=== PATIENT | female | born 1970 | race Caucasian/White ===

== ENCOUNTER → 2017-01-01 | Outpatient (CLI) | payer OTHER ==
[~2017-01-01] MED LIST: BIMA0.01 OP; CYAN100T PO; DOCU-94 PO; FERR1TAB23; FERR28TA; MTR600X PO; MULT-506 PO; NAPR1TAB9 PO; OXYC-57 PO; SACC250C11
[2017-01-01 11:06] LABS: BLOOD UREA NITROGEN 20 mg/dl (7-18); BUN/CREATININE RATIO 29.4 (10-20); CARBON DIOXIDE 26 mmol/L (21-32); CHLORIDE 109 mmol/L (98-107); CHOLESTEROL 155 mg/dl (0-200); CREATININE 0.69 mg/dl (0.60-1.20); GLUCOSE 132 mg/dl (70-99); POTASSIUM 4.2 mmol/L (3.5-5.1); SODIUM 142 mmol/L (136-145); TRIGLYCERIDES 44 mg/dl (0-150); VERY LOW DENSITY LIPOPROT CALC 9 mg/dl
[2017-01-01 11:09] LABS: CALCIUM 8.3 mg/dl (8.5-10.1)
[2017-01-01 11:16] LABS: HDL CHOLESTEROL 77 mg/dl; LDL CHOLESTEROL CALCULATED 69 mg/dl
[2017-01-01 11:58] LABS: HEMATOCRIT 20.8 % (37-47); MEAN CELL VOLUME 68.9 fL (80-100); MEAN CORPUSCULAR HEMOGLOBIN 19.9 pg (25-34); MEAN CORPUSCULAR HGB CONC 28.8 g/dl (32-36); MEAN PLATELET VOLUME 10.9 fL (7.4-10.4); PLATELET COUNT 241 K/uL (130-400); RED BLOOD COUNT 3.02 M/uL (4.2-5.4); WHITE BLOOD COUNT 3.77 K/uL (4.8-10.8)
[2017-01-01 13:36] LABS: FERRITIN 1.8 ng/ml (8.0-388.0)
[2017-01-01 13:49] LABS: BASO % 1.7 %; BASO ABS # 0.07 K/uL (0-0.2); EOS % 4.7 %; IG% 0.2 %; LYMPH % 31.5 %; LYMPH ABS # 1.28 K/uL (1.2-3.4); MONO % 10.8 %; NEUT % 51.1 %
[2017-01-01 14:23] LABS: COMPLETE YES; MICROCYTOSIS PRESENT; OVALOCYTES 1+
== END | disposition home or self-care (01) ==
LOC: C.LABBC 07:24
PROVIDERS: ATTEND Internal Medicine
DX: D64.9 Anemia, unspecified (principal); Z13.220 Encounter for screening for lipoid disorders; Z13.0 Encounter for screening for diseases of the blood and blood-forming organs and certain disorders involving the immune mechanism; Z13.29 Encounter for screening for other suspected endocrine disorder; Z13.1 Encounter for screening for diabetes mellitus

== ENCOUNTER → 2017-01-02 | Outpatient (CLI) | payer OTHER ==
[2017-01-02 10:01] LABS: HEMATOCRIT 21.4 % (37-47); MEAN CELL VOLUME 68.8 fL (80-100); MEAN CORPUSCULAR HEMOGLOBIN 19.9 pg (25-34); MEAN PLATELET VOLUME 9.5 fL (7.4-10.4); PLATELET COUNT 272 K/uL (130-400); RED BLOOD COUNT 3.11 M/uL (4.2-5.4); WHITE BLOOD COUNT 3.83 K/uL (4.8-10.8)
[2017-01-02 10:11] LABS: BASO ABS # 0.04 K/uL (0-0.2); COMPLETE YES; EOS % 3.4 %; HYPOCHROMIA PRESENT; IG% 0.3 %; LYMPH % 32.4 %; LYMPH ABS # 1.24 K/uL (1.2-3.4); MICROCYTOSIS PRESENT; MONO % 7.8 %; NEUT % 55.1 %
== END | disposition home or self-care (01) ==
LOC: C.LAB 08:45
PROVIDERS: ATTEND Internal Medicine
DX: D64.9 Anemia, unspecified (principal)

== ENCOUNTER → 2017-01-04 | Outpatient (CLI) | payer OTHER ==
[2017-01-04 14:16] LABS: MEAN CORPUSCULAR HEMOGLOBIN 19.3 pg (25-34); MEAN CORPUSCULAR HGB CONC 27.9 g/dl (32-36); PLATELET COUNT 316 K/uL (130-400); RED BLOOD COUNT 3.48 M/uL (4.2-5.4); WHITE BLOOD COUNT 7.95 K/uL (4.8-10.8)
== END | disposition home or self-care (01) ==
LOC: C.LAB1850 12:21
PROVIDERS: ATTEND Internal Medicine
DX: D64.9 Anemia, unspecified (principal)

== ENCOUNTER → 2017-01-04 | Outpatient (CLI) | payer OTHER | END | disposition home or self-care (01) | LOC: C.PAPS 14:33 | PROVIDERS: ATTEND Obstetrics & Gynecology | DX: Z12.4 Encounter for screening for malignant neoplasm of cervix (principal) ==

== ENCOUNTER → 2017-01-11 | Outpatient (CLI) | payer OTHER ==
[2017-01-11 17:26] LABS: HEMATOCRIT 28.2 % (37-47); MEAN CORPUSCULAR HEMOGLOBIN 23.2 pg (25-34); MEAN CORPUSCULAR HGB CONC 29.4 g/dl (32-36); PLATELET COUNT 211 K/uL (130-400); RED BLOOD COUNT 3.57 M/uL (4.2-5.4)
== END | disposition home or self-care (01) ==
LOC: C.LABBC 13:18
PROVIDERS: ATTEND Internal Medicine
DX: D64.9 Anemia, unspecified (principal)

== ENCOUNTER → 2017-01-18 | Outpatient (CLI) | payer OTHER ==
[2017-01-18 14:19] LABS: HEMATOCRIT 35.9 % (37-47); MEAN CELL VOLUME 85.3 fL (80-100); MEAN CORPUSCULAR HEMOGLOBIN 25.4 pg (25-34); MEAN CORPUSCULAR HGB CONC 29.8 g/dl (32-36); MEAN PLATELET VOLUME 11.1 fL (7.4-10.4); PLATELET COUNT 235 K/uL (130-400); RED BLOOD COUNT 4.21 M/uL (4.2-5.4); WHITE BLOOD COUNT 4.48 K/uL (4.8-10.8)
== END | disposition home or self-care (01) ==
LOC: C.LABBC 10:21
PROVIDERS: ATTEND Internal Medicine
DX: D64.9 Anemia, unspecified (principal)

== ENCOUNTER → 2017-02-01 | Outpatient (CLI) | payer OTHER ==
[2017-02-01 11:07] LABS: BASO % 1.7 %; BASO ABS # 0.08 K/uL (0-0.2); EOS % 2.4 %; HEMATOCRIT 40.3 % (37-47); LYMPH % 34.9 %; MEAN CELL VOLUME 89.2 fL (80-100); MEAN CORPUSCULAR HEMOGLOBIN 27.2 pg (25-34); MEAN CORPUSCULAR HGB CONC 30.5 g/dl (32-36); MONO % 8.7 %; NEUT % 52.3 %; PLATELET COUNT 211 K/uL (130-400); RED BLOOD COUNT 4.52 M/uL (4.2-5.4); WHITE BLOOD COUNT 4.59 K/uL (4.8-10.8)
[2017-02-01 11:33] LABS: ANISOCYTOSIS PRESENT; COMPLETE YES; ECHINOCYTES 1+
== END | disposition home or self-care (01) ==
LOC: C.LABBC 07:45
PROVIDERS: ATTEND Internal Medicine
DX: D64.9 Anemia, unspecified (principal)

== ENCOUNTER → 2017-02-01 | Outpatient (CLI) | payer OTHER | END | disposition home or self-care (01) | LOC: C.PATHSPEC 17:40 | PROVIDERS: ATTEND Obstetrics & Gynecology | DX: N93.8 Other specified abnormal uterine and vaginal bleeding (principal) ==

== ENCOUNTER 2017-02-22 07:07 | Observation (INO) | payer OTHER ==
[2017-02-01 15:40] VITALS: BMI 21.0
--- NOTE | 2017-02-01 15:54 | PAT Medication Instructions ---
Service Date Feb 01, 2017. Current Home Medication List Bimatoprost (Lumigan), 1 DROPS OP HS Cyanocobalamin (Vitamin B-12), Unknown Dose PO QAM Ferrous Gluconate (Iron) Ferrous Sulfate (Iron), Unknown Dose Multivitamin (Multivitamin), 1 TAB PO QAM Naproxen (Aleve), 220 MG PO prn PRN for headache Saccharomyces Boulardii (Probiotic), Unknown Dose QAM Medication Instructions For Your Scheduled Surgery - Check with surgeon for instructions: Naproxen (Aleve), 220 MG PO prn PRN for headache - Hold the following medications the morning of surgery: Saccharomyces Boulardii (Probiotic), Unknown Dose QAM Multivitamin (Multivitamin), 1 TAB PO QAM Ferrous Sulfate (Iron), Unknown Dose Cyanocobalamin (Vitamin B-12), Unknown Dose PO QAM - Take the following medications as scheduled the night before surgery: Bimatoprost (Lumigan), 1 DROPS OP HS If you have any questions please call us at [phone] or [phone] or [phone]
[2017-02-01 17:14] LABS: BUN/CREATININE RATIO 25.6 (10-20); CALCIUM 9.2 mg/dl (8.5-10.1); CREATININE 0.82 mg/dl (0.60-1.20); POTASSIUM 4.1 mmol/L (3.5-5.1)
[~2017-02-22] VITALS: Ht 157.5 cm; Wt 52.0 kg
[~2017-02-22 07:07] MED LIST changes: +CEFAZOLIN 2000 MG/60 ML D5W 50 ML IV SCH; -DOCU-94 PO; -FERR28TA; +LACTATED RINGER'S 1000ML 1,000 ML IV SCH; -MTR600X PO; -OXYC-57 PO
[2017-02-22 07:43] VITALS: BP 114/70; PULSE 95; TEMP 36.8; O2SAT 97; Ht 157.5 cm; Wt 52.0 kg
--- NOTE | 2017-02-22 08:03 | History & Physical Bridge Note ---
H&P Re-Evaluation Bridge Note: I have examined the patient, reviewed the History & Physical and in the interval since the performance of the History & Physical I have noted the following changes of clinical significance: No changes noted
[2017-02-22] MEDS ORDERED: DOCU-94 PO (08:06)
[2017-02-22] MEDS ORDERED: ONDANSETRON INJ 2 MG/ML 2 ML VIAL IV PRN ×2 (08:15→10:45)
[2017-02-22] MEDS ORDERED: FLUMAZENIL 0.1 MG/1 ML 10 ML VIAL IV PRN (08:15)
[2017-02-22] MEDS ORDERED: LABETALOL HCL IV 5 MG/ML 20ML IV PRN (08:15)
[2017-02-22] MEDS ORDERED: MEPERIDINE HCL 25 MG/ML CARP IV PRN (08:15)
[2017-02-22] MEDS ORDERED: PHENYLEPHRINE 100MCG/ML 5ML SYR IV PRN (08:15)
[2017-02-22] MEDS ORDERED: HYDROmorphone INJ 2 MG/ML SYR/VIAL IV PRN (08:15)
[2017-02-22] MEDS ORDERED: FENTANYL CITRATE INJ 50 MCG/1 ML 2 ML VIAL IV PRN (08:15)
[2017-02-22] MEDS ORDERED: ATROPINE SULFATE 0.1 MG/ML 5ML SYR IV PRN (08:15)
[2017-02-22] MEDS ORDERED: EpHEDrine SULFATE INJ 50 MG/ML AMP IV PRN (08:15)
[2017-02-22] MEDS ORDERED: NALOXONE HCL 0.4 MG/1 ML VIAL/CARP IV PRN (08:15)
[2017-02-22] MEDS ORDERED: MIDAZOLAM HCL 1 MG/ML 2ML VIAL ONE (08:16)
[2017-02-22] MEDS ORDERED: PROPOFOL IV EMULSION 10 MG/ML 20 ML VIAL IV ONE (08:16)
[2017-02-22] MEDS ORDERED: GLYCOPYRROLATE INJ 0.2 MG/ML VIAL ONE ×2 (08:16→09:53)
[2017-02-22] MEDS ORDERED: LIDOCAINE HCL 2% 2 ML VIAL (20MG/ML) ONE (08:16)
[2017-02-22] MEDS ORDERED: ONDANSETRON INJ 2 MG/ML 2 ML VIAL ONE (08:16)
[2017-02-22] MEDS ORDERED: ROCURONIUM BROMIDE 10 MG/ML 5 ML VIAL ONE ×2 (08:16→09:48)
[2017-02-22] MEDS ORDERED: DEXAMETHASONE SOD INJ 4 MG/ML VIAL ONE (08:16)
[2017-02-22] MEDS ORDERED: NEOSTIGMINE METHYLSULFATE 5 MG/5 ML SYR ONE (08:16)
[2017-02-22] MEDS ORDERED: FENTANYL CITRATE INJ 50 MCG/1 ML 2 ML VIAL ONE (08:17)
[2017-02-22] MEDS ORDERED: BUPIVACAINE 0.5 % 5 MG/1 ML MPF 30ML VIAL ONE (08:23)
[2017-02-22] MEDS ORDERED: HYDROmorphone INJ 2 MG/ML SYR/VIAL ONE (09:04)
[2017-02-22 09:15] LABS: HEMATOCRIT 29.2 % (37-47)
[2017-02-22] MEDS ORDERED: SODIUM CHLORIDE 0.9% INJ 10 ML VIAL ONE (09:29)
[2017-02-22] MEDS ORDERED: PHENYLEPHRINE 100MCG/ML 5ML SYR ONE (09:47)
[2017-02-22] MEDS ORDERED: METHYLENE BLUE 0.5% 10 ML VIAL ONE (10:00)
[2017-02-22] MEDS ORDERED: KETOROLAC TROMETHAMINE 30 MG/ML VIAL ONE (10:28)
[2017-02-22] MEDS ORDERED: TISSEEL FIBRIN SEALANT 4ML TOP ONE (10:31)
[2017-02-22] MEDS ORDERED: LACTATED RINGER'S 1000ML 1,000 ML IV SCH (10:38)
[2017-02-22] MEDS ORDERED: OXYC-57 PO (10:44)
[2017-02-22] MEDS ORDERED: MTR600X PO (10:44)
[2017-02-22] MEDS ORDERED: MAGNESIUM HYDROXIDE SUSP 30 ML UDC PO PRN (10:45)
[2017-02-22] MEDS ORDERED: PROMETHAZINE HCL INJ 12.5 MG in SODIUM CHLORIDE 0.9% 50ML 50 ML IV PRN (10:45)
[2017-02-22] MEDS ORDERED: ZOLPIDEM TARTRATE 5 MG TAB PO PRN (10:45)
[2017-02-22] MEDS ORDERED: IBUPROFEN 600 MG TAB PO PRN (10:45)
[2017-02-22] MEDS ORDERED: SIMETHICONE 80 MG CHEW PO PRN (10:45)
[2017-02-22] MEDS ORDERED: PROMETHAZINE HCL INJ 25 MG in SODIUM CHLORIDE 0.9% 50ML 50 ML IV PRN (10:45)
[2017-02-22] MEDS ORDERED: KETOROLAC TROMETHAMINE 30 MG/ML VIAL IV. PRN (10:45)
[2017-02-22] MEDS ORDERED: OXYCODONE/ACETAMINOPHEN 5-325 TAB PO PRN ×2 (10:45)
[2017-02-22] MEDS ORDERED: ACETAMINOPHEN 325 MG TAB PO PRN (10:45)
[2017-02-22] MEDS ORDERED: MEPERIDINE HCL 50 MG/ML CARP IV PRN ×2 (10:45)
[2017-02-22] MEDS ORDERED: BISACODYL 10 MG SUPP PR PRN (10:45)
--- NOTE | 2017-02-22 10:46 | Discharge Instructions ---
Discharge Instructions Date of Service Feb 22, 2017. Admission Reason for Admission: Dysfunctional Uterine Bleeding, Anemia, Hx Of Joan Discharge Discharge Diagnosis / Problem: menorrhagia Discharge Goals Goal(s): Routine recovery after surgery Activity Recommendations Activity Limitations: per Instructions/Follow-up section . Instructions / Follow-Up Instructions / Follow-Up POST OPERATIVE: BOWEL FUNCTION/MEDICATIONS: 1. Constipation pain and discomfort are the most common complaints 5-7 days after surgery. Points 2-6 address the things that can help. 2. Chewing gum can help stimulate the gut and help improve digestion and motility. 3. Milk of Magnesia 1-2 times per day until return of bowel function. 4. Colace is a stool softener that helps. Taking this 2-3 times per day until bowel function returns to normal is highly recommended. 5. Dulcolax is a laxative that may be used if several days have passed without a bowel movement. Alternatively Miralax may be used daily instead. 6. Drink plenty of fluids as this will also reduce constipation. 7. Narcotic pain medications will be prescribed by your physician. They are safe to use and we encourage you to use them. If you are not allergic, ibuprofen will also be prescribed. Many patients will be able to transition off of the narcotic medications to ibuprofen by postoperative day 3. ACTIVITY RECOMMENDATIONS: 1. Get plenty of rest and listen to your body. If you are tired, take a nap. 2. You may shower, but do not take a tub bath until you see your doctor at the 2 week post operative visit. 3. Absolutely NO intercourse and nothing in the vagina until you are examined by your doctor at the 6 week visit. At that visit it will be determined when such activities can be resumed. This can range from 6-12 weeks after your surgery depending on healing time. 4. The main physical activity in the first week should be walking. By the second week you can slowly increase activity. There are no limits on walking up and down stairs. 5. Do not lift more than 5-10 lbs for 4 weeks. Remember the "one-handed rule", i.e. if you can lift something with only one hand it's likely okay. 6. Minimize braiding machine operator like vacuuming and exercising for 4 weeks. "Overdoing it" can lead to incisions not healing, pain and vaginal bleeding , so again, listen to your body. 7. Driving can be resumed when you feel able. Do not drive within 24 hours of taking a narcotic medication. EXPECTATIONS: 1. Vaginal spotting, bleeding and discharge are common after surgery. There may even be an odor to the discharge which is often related to sutures used in the vagina. If you experience heavy vaginal bleeding, call the office number day or night [phone]. 2. Bladder discomfort is common after surgery from the catheter. This usually resolves in 1-2 weeks. 3. By the end of the 3rd or 4th week you should be feeling much better. It may take up to 6 weeks for your energy levels to return to normal. 4. Narcotic medications have side effects such as: dizziness, headache, nausea and/or vomiting. If you suspect your pain medication is causing problems, call our office and we may be able to prescribe an alternate medication. 5. The skin incisions are often covered with a liquid bandage. This will gradually peel off over time. CALL THE OFFICE IF YOU HAVE ANY OF THE FOLLOWIN. Temperature of 101 degrees or higher. 2. Severe abdominal or pelvic pain not relieved by pain medication. 3. Persistent nausea or vomiting. 4. Increased pain with urination or difficulty urinating. 5. Bright red bleeding that soaks more than 1 pad per hour. CONTACT PHONE NUMBERS: Main Office: [phone] Surgical Nurse: [phone] extension [phone] Avoid all tobacco products. If you need help to stop smoking, call [place]'s FREE QUITLINE at . This is a free call. Current Hospital Diet Patient's current hospital diet: Discharge Diet Recommended Diet: Regular Diet Procedures Procedures Performed: Total Laparoscopic Hysterectomy with uterus greater than 250 grams, Left salpingectomy, drainage of left simple ovarian cyst with use of Davinci, cystoscopy. Pending Studies Studies pending at discharge: no Laboratory Results Lipid Panel Test 01/01/17 07:30 Range/Units Triglycerides Level 44 0-150 mg/dl Cholesterol Level 155 0-200 mg/dl HDL Cholesterol 77 mg/dl Cholesterol/HDL Ratio 2.0 LDL Cholesterol, Calculated 69 mg/dl Medical Emergencies . Who to Call and When: Medical Emergencies: If at any time you feel your situation is an emergency, please call 911 immediately. . Non-Emergent Contact Non-Emergency issues call your: Banking Manager . . "Provider Documentation" section prepared by Efren Callejas. . VTE Core Measure Inpt VTE Proph given/why not?: Charity Aragon, KEVIN's
--- NOTE | 2017-02-22 10:56 | [facility] Operative Report ---
Operative Report Operative Date Feb 22, 2017. Pre-Operative Diagnosis Dysfunctional uterine bleeding, leiomyoma. Post-Operative Diagnosis Same as preop. Procedure(s) Performed Total Laparoscopic Hysterectomy with uterus greater than 250 grams, Left salpingectomy, drainage of left simple ovarian cyst with use of Davinci, cystoscopy. Surgeon Dr. Callejas Docent Coordinator Surgeon(s) Dr. Blanco Estimated Blood Loss 20 ml Findings Patient was taken back to the operating room prepped and draped in dorsal lithotomy position in yellowfin Tony stirrups IV antibiotics Ancef 2 g given preoperatively timeout performed Lopez catheter used to drain her bladder V care sewn into her uterus should be noted that was about 12 weeks size. Patient was menstruating at the time of surgery so I did get a hemostat hemoglobin and it was 9.5. Gloves changes supraumbilical incision made with scalpel using openness on technique we cut down through the something is fat through the fascia split the rectus muscles entered the peritoneal cavity without difficulty. Blunt-tipped Campuzano trocar then placed balloon inflated and then CO2 gas to insufflate the abdomen. findings upper abdomen normal no sign of visceral organ injury. Deep Trendelenburg position obtained Findings uterus enlarged appears benign and smooth no right adnexa a minimal adhesion of omentum to the right cornua of the uterus a simple left ovarian cyst left ovary otherwise normal. Placed 2 robotic ports one in the left one on the right than the left upper quadrant accessory port 11 mm blade was placed. Robot docked arm #1 monopolar linda arm #2 bipolar Raven. Procedure was begun by using the D Carmelina manipulator identified the ureters on both sides they followed a normal course. We drain the simple cyst on the left ovary with monopolar linda and then remove the fallopian tube. Full tube was then removed through the accessory port. We then coagulated the blood supply distal to the left ovary. This was then cut same process with the round ligament once the round ligament was transected and was able to skeletonize the vessels of the left uterine's. Bladder flap was then sharply dissected away was unable to coagulated the vessels of the left ovarian artery and vein with the bipolar Raven staying well away from the left ureter. These vessels were then cut exact same process was continued on the right however there was no right adnexa. Once the vessels were quite dilated on both sides of the uterine's I made an anterior colpotomy. It should be noted prior to this I actually we docked the robot to help facilitate use of arm #2 this required approximately 3-4 minutes. Anterior colpotomy made with monopolar linda this was continued to full colpotomy staying medial or uterine vessel ligations. Uterus was then removed by pulling into the vagina it was larger but was able to be moved into the vagina. By grasping the posterior aspect of the uterus with a tenaculum this was facilitated. Uterus was then removed from the vagina and a sponge was placed in the vagina with a glove. Instruments exchanged methylene blue given by anesthesia arm #1 became the faizan needle tractor driver teamster arm #2 coper grasper. Suture was placed through the accessory port to OV LOC 90 suture cuff was closed from left to right back right to left suture was cut to the was no tail we took at least 1 cm full-thickness bites of vaginal mucosa. Once the suture was cut and needle remove the accessory port we irrigated with sterile saline and suction and applied Tisseel to the areas of the uterine and ovarian pedicles. At this stage cystoscopy at the performed by Dr. Blanco he was able to visualize a normal bladder and good strong jets of blue dye from both left and right ureter openings. Cystoscope removed and a Lopez catheter placed. The glove had been removed from the vagina along with the sponge. Instruments removed from the robotic arms robot undocked incisions injected with 0.5% Marcaine fascia closed carefully in the umbilical incision with 0 Vicryl subtenon's fat close as well along with the left upper quadrant incision with 0 Vicryl. 4-0 subcuticular Monocryl closures Dermabond applied to the incisions sponge and instrument counts correct the was no vaginal bleeding noted at the end of procedure Specimens A: Uterus, cervix, left tube Drains Lopez Anesthesia General Complication(s) None Disposition Recovery Room / PACU I attest to the content of the Intraoperative Record and any orders documented therein. Any exceptions are noted below.
--- NOTE | 2017-02-22 11:37 | Anesthesiology Progress Note ---
Anesthesia Post Op Note Date & Time Feb 22, 2017 at 11:36 Vital Signs Pain Intensity: 0 Vital Signs Past 12 Hours Date Time Temp Pulse Resp B/P (MAP) Pulse Ox O2 Delivery O2 Flow Rate FiO2 02/22/17 11:30 36.4 58 14 132/81 100 Nasal Cannula 2 02/22/17 11:20 60 16 132/84 100 Nasal Cannula 2 02/22/17 11:10 66 17 140/81 100 Oxymask 8 02/22/17 11:00 77 20 136/79 100 Oxymask 10 02/22/17 10:52 36.3 87 18 133/84 100 Oxymask 10 02/22/17 07:43 36.8 95 20 114/70 (85) 97 Room Air Notes Mental Status: alert / awake / arousable, participated in evaluation Pt Amnestic to Procedure: Yes Nausea / Vomiting: adequately controlled Pain: adequately controlled Airway Patency, RR, SpO2: stable & adequate BP & HR: stable & adequate Hydration State: stable & adequate Anesthetic Complications: no major complications apparent
[2017-02-22 11:50] VITALS: BP 147/74; PULSE 60; PULSE 64; TEMP 36.5; O2SAT 100
[2017-02-22 12:15] VITALS: BP 132/81; PULSE 62; TEMP 36.3; O2SAT 100
[2017-02-22 12:45] VITALS: BP 152/81; PULSE 62; TEMP 36.3; O2SAT 100
[2017-02-22 13:45] VITALS: BP 125/76; PULSE 69; TEMP 36.7; O2SAT 96
[2017-02-22] MEDS ORDERED: IV FLUIDS COMPLETED PRN (14:00)
[2017-02-22 14:45] VITALS: BP 143/73; PULSE 66; TEMP 36.6; O2SAT 99
[2017-02-22] MEDS ORDERED: DOCUSATE SODIUM 100 MG CAP PO SCH (21:00)
--- NOTE | 2017-02-23 07:54 | DISCHARGE SUMMARY ---
Brynn had a total laparoscopic hysterectomy on 02/22/2017. Her operative note has been dictated. Surgery was uncomplicated. She met discharge criteria within a few hours after surgery and was sent home. At that time she was ambulating, tolerating an oral diet, pain was well controlled, was voiding well and had no other concerns. PHYSICAL EXAMINATION: VITAL SIGNS: Stable. She was afebrile. IMPRESSION AND PLAN: Meets criteria. Given appropriate pain medication, Percocet and Motrin and discharged home. Told to follow up in the office.
== END 2017-02-22 15:30 | disposition home or self-care (01) ==
LOC: C.ACU 07:07 → C.MS4N 08:00
PROVIDERS: ADMIT Obstetrics & Gynecology; ATTEND Obstetrics & Gynecology
DX: D25.9 Leiomyoma of uterus, unspecified (principal); N93.8 Other specified abnormal uterine and vaginal bleeding; D64.9 Anemia, unspecified; D21.9 Benign neoplasm of connective and other soft tissue, unspecified; Z85.3 Personal history of malignant neoplasm of breast; Z82.49 Family history of ischemic heart disease and other diseases of the circulatory system; Z90.13 Acquired absence of bilateral breasts and nipples; E11.9 Type 2 diabetes mellitus without complications